=== PATIENT | male | born 1970 | race Caucasian/White ===

== ENCOUNTER 2017-08-07 10:35 | Emergency (ER) | payer OTHER ==
[~2017-08-07] VITALS: Ht 172.7 cm; Wt 68.0 kg
[2017-08-07] MEDS ORDERED: SOD CHLORIDE 0.9% 1,000 ML IV STA (10:40)
[2017-08-07] MEDS ORDERED: ALBUTEROL 0.5% (NEB) 2.5 MG/0.5 ML AMP INH STA (10:42)
[2017-08-07] MEDS ORDERED: IPRATROPIUM (NEB) 0.5 MG/2.5 ML AMP INH STA (10:42)
[2017-08-07 11:01] VITALS: Ht 172.7 cm; Wt 68.0 kg
[2017-08-07 11:02] LABS: AADO2 Arterial 283.8 mmHg (7.0-24.0); Allen Test ACCEPTAB; Arterial Base Excess -0.3 mmol/L (-3.0-3); Arterial COHb 0.3 % (0.0-3.0); Arterial Fraction of Oxyhgb 83.3 % (93.0-99.0); Arterial HCO3 24.5 mmol/L (22.0-26.0); Arterial MetHb 0.1 % (0.0-1.5); Arterial Total Hemglobin 14.2 g/dl (12.0-18.0); MODE NEBULIZER
[2017-08-07 11:07] LABS: BASOPHILS % 0.3 % (0.0-2.0); EOSINOPHILS # 0.3 10^3/ul (0.0-0.5); EOSINOPHILS % 4.7 % (0.0-7.0); HEMATOCRIT 37.5 % (42.0-52.0); HEMOGLOBIN 13.2 g/dl (14.0-18.0); LYMPHOCYTES % 14.4 % (15.0-51.0); MEAN CORPUSCULAR HEMOGLOBIN 30.8 pg (29.0-33.0); MEAN CORPUSCULAR HGB CONC 35.2 g/dl (32.0-37.0); MEAN CORPUSCULAR VOLUME 87.6 fl (82.0-101.0); MEAN PLATELET VOLUME 9.2 fl (7.4-10.4); MONOCYTE # 0.7 10^3/ul (0.3-0.9); MONOCYTES % 9.6 % (0.0-11.0); NEUTROPHIL # 5.1 10^3/ul (1.6-7.5); NEUTROPHILS % 70.6 % (39.0-77.0); PLATELET COUNT 273 10^3/UL (140-415); RED BLOOD COUNT 4.28 10^6/ul (4.70-6.10); RED CELL DISTRIBUTION WIDTH 12.6 % (11.5-14.5); WHITE BLOOD COUNT 7.2 10^3/ul (4.8-10.8)
[2017-08-07] MEDS ORDERED: LORA1TAB PO (11:08)
[2017-08-07] MEDS ORDERED: CARB200T70 PO (11:09)
[2017-08-07] MEDS ORDERED: LEVE-5 PO (11:09)
--- NOTE | 2017-08-07 11:47 | RADRPT ---
PROCEDURE: XR Chest AP portable CLINICAL INDICATION: Stroke TECHNIQUE: An AP portable radiograph of the chest was submitted. COMPARISON: None. FINDINGS: Support Hardware: None Cardiovascular: The cardiovascular silhouette appears unremarkable. Lung Yun: The lung yun appear clear with no nodule, alveolar infiltrate, or interstitial promi nence evident. Pleural Spaces: No pneumothorax or pleural effusion is identified. Osseous Structures: There is a mild apparent levoscoliotic curve to the thoracic spine. Soft Tissues: The soft tissues appear unremarkable. IMPRESSION: Unremarkable portable chest. Physician Melissa Date Time Electronically viewed and signed by Physician Melissa on 08/07/2017 11:47 RH/
[2017-08-07 11:49] LABS: INR 1.05; PARTIAL THROMBOPLASTIN TIME 29.9 Sec (25.0-35.0); PROTIME 13.7 Sec (12.2-14.2); PT RATIO 1.1
[2017-08-07 12:35] LABS: ALANINE AMINOTRANSFERASE 41 IU/L (13-69); ALBUMIN 4.2 g/dl (3.3-4.9); ALBUMIN/GLOBULIN RATIO 1.35; ALKALINE PHOSPHATASE 94 IU/L (42-121); ANION GAP 13 (8-16); ASPARTATE AMINO TRANSFERASE 20 IU/L (15-46); BILIRUBIN,INDIRECT 0.4 mg/dl (0-1.1); BILIRUBIN,TOTAL 0.4 mg/dl (0.2-1.3); BLOOD UREA NITROGEN 7 mg/dl (7-20); CALCIUM 9.1 mg/dl (8.4-10.2); CARBON DIOXIDE 26 mmol/L (21-31); CHLORIDE 95 mmol/L (97-110); CREATINE KINASE 29 IU/L (23-200); CREATININE 0.55 mg/dl (0.61-1.24); GLUCOSE 136 mg/dl (70-220); POTASSIUM 4.2 mmol/L (3.5-5.1); SODIUM 130 mmol/L (135-144); TOTAL PROTEIN 7.3 g/dl (6.1-8.1)
[2017-08-07 12:35] LABS: ADD UMIC NO; UR ASCORBIC ACID NEGATIVE (NEGATIVE); UR BILIRUBIN (Dip) NEGATIVE (NEGATIVE); UR BLOOD (Dip) NEGATIVE (NEGATIVE); UR CLARITY CLEAR (CLEAR); UR COLOR YELLOW (YELLOW); UR GLUCOSE (Dip) NEGATIVE (NEGATIVE); UR KETONES (Dip) NEGATIVE (NEGATIVE); UR LEUKOCYTE ESTERASE (Dip) NEGATIVE Leu/ul (NEGATIVE); UR NITRITE (Dip) NEGATIVE (NEGATIVE); UR SPECIFIC GRAVITY (Dip) 1.017 (1.003-1.030); UR TOTAL PROTEIN (Dip) NEGATIVE (NEGATIVE); UR UROBILINOGEN (Dip) NEGATIVE (NEGATIVE)
[2017-08-07 12:49] LABS: CK-MB 0.81 ng/ml (0.0-2.4); TROPONIN-I < 0.012 ng/ml (0.00-0.12)
[2017-08-07 13:05] LABS: BARBITURATES NEGATIVE (NEGATIVE); BENZODIAZEPINES NEGATIVE (NEGATIVE); CANNABINOIDS NEGATIVE (NEGATIVE); COCAINE NEGATIVE (NEGATIVE); OPIATES NEGATIVE (NEGATIVE)
--- NOTE | 2017-08-07 13:35 | ERA ---
ER Documentation Chief Complaint Date/Time DATE: 08/07/17 TIME: 13:22 Chief Complaint R SIDED WEAKNESS SEEN NORMAL AT 2200 LAST NIGHT HPI This is a 46-year-old male bedbound and is stiff facility due to a chronic subdural hematoma and a brain tumor with craniotomy. EMS was called to the scene as they stated the patient appeared to be more confused. The patient's last known normal time was at 10 PM, 14 hours prior to arrival. Nursing staff stated that normally the patient is able to move his upper and lower extremities but they noticed that the patient had no movement of his right upper or right lower extremity. The patient's blood glucose was normal. The patient has chronic hypoxia but is not on supplemental oxygen. The patient is not currently on antibiotics. The patient is unable to provide any history she is normally aphasic with a chronic left-sided facial droop ROS All systems reviewed and are negative except as per history of present illness. Medications Home Meds Reported Medications Levetiracetam* (Keppra*) 500 Mg Tablet, 500 MG PO BID, TAB 08/07/17 Carbamazepine* (Tegretol Xr*) 200 Mg Tab.sr.12h, 200 MG PO TID, TAB.SA 08/07/17 Lorazepam* (Lorazepam*) 1 Mg Tablet, 1 MG PO BID Y for ANXIETY, #30 TAB 08/07/17 Allergies Allergies: Coded Allergies: No Known Allergy (Unverified , 08/07/17) Physical Exam Vitals Vital Signs Date Time Temp Pulse Resp B/P Pulse Ox O2 Delivery O2 Flow Rate FiO2 08/07/17 11:01 98.5 94 19 105/71 83 08/07/17 11:01 Non Rebreather 15 08/07/17 10:55 8.0 08/07/17 10:55 93 19 86 Simple Mask 8.0 Physical Exam Constitutional:Well-developed. Cachectic male in mild respiratory distress HEENT:Normocephalic. Atraumatic.Pupils were equal round reactive to light. Moist mucous membranes.No tonsillar exudates. Neck: No nuchal rigidity. No lymphadenopathy. No posterior cervical spine tenderness or step-offs. Respiratory: Not using accessory muscles of respiration. Wheezing bilaterally. Shallow respirations. Cardiovascular: Regular rate regular rhythm.No murmurs. No rubs were appreciated.S1, S2 normal. Distal pulses are palpable 2+ bilaterally. GI: Abdomen was soft. Nontender. Non Distended. No pulsatile abdominal masses or bruits. No rebound. No guarding. Bowel sounds were present and normal. Muscle skeletal: Patient has no movement of the upper or lower extremities bilaterally. Muscle atrophy Skin: No petechia, no purpura. No lesions on the palms or the soles of the feet. No maculopapular rash. NEURO: Is alert and awake. Patient will track past midline bilaterally but holds head to the left. Does not follow verbal command. A phasic at baseline. Gait not observed as patient is not ambulatory Result Diagram: 08/07/17 1040 08/07/17 1040 Results 24 hrs Laboratory Tests Test 08/07/17 10:40 08/07/17 10:42 08/07/17 12:15 White Blood Count 7.210^3/ul Red Blood Count 4.2810^6/ul Hemoglobin 13.2g/dl Hematocrit 37.5% Mean Corpuscular Volume 87.6fl Mean Corpuscular Hemoglobin 30.8pg Mean Corpuscular Hemoglobin Concent 35.2g/dl Red Cell Distribution Width 12.6% Platelet Count 30450^3/UL Mean Platelet Volume 9.2fl Neutrophils % 70.6% Lymphocytes % 14.4% Monocytes % 9.6% Eosinophils % 4.7% Basophils % 0.3% Nucleated Red Blood Cells % 0.0/100WBC Neutrophils # 5.110^3/ul Lymphocytes # 1.010^3/ul Monocytes # 0.710^3/ul Eosinophils # 0.310^3/ul Basophils # 0.010^3/ul Nucleated Red Blood Cells # 0.010^3/ul Prothrombin Time 13.7Sec Prothrombin Time Ratio 1.1 INR International Normalized Ratio 1.05 Activated Partial Thromboplast Time 29.9Sec Sodium Level 130mmol/L Potassium Level 4.2mmol/L Chloride Level 95mmol/L Carbon Dioxide Level 26mmol/L Anion Gap 13 Blood Urea Nitrogen 7mg/dl Creatinine 0.55mg/dl Glucose Level 136mg/dl Hemoglobin A1c 5.0% Lactic Acid Level 1.6mmol/L Calcium Level 9.1mg/dl Total Bilirubin 0.4mg/dl Direct Bilirubin 0.00mg/dl Indirect Bilirubin 0.4mg/dl Aspartate Amino Transf (AST/SGOT) 20IU/L Alanine Aminotransferase (ALT/SGPT) 41IU/L Alkaline Phosphatase 94IU/L Creatine Kinase 29IU/L Creatine Kinase Index 2.8 Creatinine Kinase MB (Mass) 0.81ng/ml Troponin I < 0.012ng/ml Total Protein 7.3g/dl Albumin 4.2g/dl Globulin 3.10g/dl Albumin/Globulin Ratio 1.35 Blood Gas Specimen Source Blood arterial Arterial Blood Date Drawn 08/07/2017 10:50:39 AM Arterial Blood pH (Temp corrected) 7.397 Arterial Blood pCO2 (Temp correct) 40.8mmhg Arterial Blood pO2 (Temp corrected) 48.5mmHG Arterial Blood HCO3 24.5mmol/L Arterial Blood Base Excess -0.3mmol/L Arterial Blood Oxygen Saturation 83.6mmHG Kalyan Test ACCEPTAB Arterial Blood Gas Puncture Site Right Radial Arterial Blood Carboxyhemoglobin 0.3% Arterial Blood Methemoglobin 0.1% Blood Gas A-a O2 Differential 283.8mmHg Oxyhemoglobin Percent 83.3% Total Hemoglobin 14.2g/dl Blood Gas Temperature 37.0C Blood Gas Modality NEBULIZER FiO2 53.0% Blood Gas Critical Value Read Back DR JULES Villa Blood Gas Notified Whom JLD Blood Gas Notified Time 08/07/2017 11:02:44 AM Urine Color YELLOW Urine Clarity CLEAR Urine pH 7.0 Urine Specific Evans 1.017 Urine Ketones NEGATIVEmg/dL Urine Nitrite NEGATIVEmg/dL Urine Bilirubin NEGATIVEmg/dL Urine Urobilinogen NEGATIVEmg/dL Urine Leukocyte Esterase NEGATIVELeu/ul Urine Hemoglobin NEGATIVEmg/dL Urine Glucose NEGATIVEmg/dL Urine Total Protein NEGATIVEmg/dl Urine Opiates Screen NEGATIVE Urine Barbiturates NEGATIVE Urine Amphetamines Screen NEGATIVE Urine Benzodiazepines Screen NEGATIVE Urine Cocaine Screen NEGATIVE Urine Cannabinoids NEGATIVE Current Medications Medications (Trade) Dose Ordered Sig/Dimple Route PRN Reason Start Time Stop Time Status Last Admin Dose Admin Sodium Chloride (NS) 1,000 ml @ 1,000 mls/hr Q1H STAT IV 08/07/17 10:40 08/07/17 11:39 DC 08/07/17 11:01 Albuterol (Proventil 0.5% (Neb)) 10 mg ONCE STAT INH 08/07/17 10:42 08/07/17 10:44 DC 08/07/17 10:54 Ipratropium [place] (Atrovent 0.02% (Neb)) 1 mg ONCE STAT INH 08/07/17 10:42 08/07/17 10:44 DC 08/07/17 10:54 Procedures/MDM The patient presented to the emergency department with an acute and persistent change in their mental status. The differential diagnosis is diverse however reversible causes such as hypoglycemia, opiate overdose, thiamine deficiency were immediately considered. The patient was placed on a employee benefits manager, continuous pulse oximetry and IV access was established. The patients airway was secure however hypoxic events such as anemia, shock, or severe pulmonary disease were all considered as etiologies in this patients presentation. Circulation assessed with good cap refill and did not require fluids or pressure support. Finger stick for rapid glucose determined to be normal. The patient was hypoxic satting at roughly 78-80%. An arterial blood gas and the patient's oxygen saturation was low but there is no evidence of respiratory acidosis. At this time the patient was placed on high flow supplemental oxygen and the patient's pulse oximetry had significantly improved to 100%. Cultures and urine cultures were obtained as it was concerned with abrasion pneumonia however on the chest radiograph there is no evidence of pneumonia. 12 Lead EKG tracing ordered and reviewed by myself showed: Normal sinus rhythm of 92 bpm and no arrhythmia. MN interval normal. QRS duration normal. No ST segment elevation No ST segment depression. No changes consistent with acute ischemia. Given that the patient did have new focal neurological deficits a CT scan of the patient's head was ordered. The patient was out of the window for a TPA candidate and therefore a code stroke was not called. CT scan of the head ordered and reviewed by myself and the radiologist indicated the followin. Moderate to severe enlargement of the lateral ventricles as well as the third ventricle, with subtle periventricular white matter hypodensity. Concern is raised for moderate hydrocephalus with possible aqueductal stenosis. MRI is recommended for further evaluation. 2. Postoperative changes from suboccipital craniotomy with resection cavity in the right cerebellar hemisphere as well as encephalomalacia involving the posterior cerebellar hemispheres, likely related to remote prior mass resection. 3. Thickening of the dura along the anterolateral aspect of the right posterior fossa, which may be related to postoperative changes with calcifications however chronic subdural fluid collection is not excluded. 4. No CT evidence of infarct at this time. If clinical concern for infarct, MRI is recommended for further evaluation. The patient had no evidence of urinary tract infection or electrolyte abnormalities other than mild hypo-natremia. The patient is a [place] patient and I spoke with the [place] [facility] and I did feel that the patient was stable for transfer for further evaluation into the possible worsening of his hydrocephalus that could be resolved if his new onset neurological symptoms. Critical Care: Time: 45 minutes Treatments/Evaluations: Close monitoring and treatment of unstable vital signs, cardiorespiratory, and neurologic status, while maintaining tight balance of fluid, respiratory, and cardiac interventions. Time does not include performing any of the above billable procedures. Departure Diagnosis: Primary Impression: Severe hypoxic-ischemic encephalopathy Additional Impressions: Muscle weakness on examination Hydrocephalus Condition: Serious DENISEMAYRADARIELA Aug 07, 2017 13:35
--- NOTE | 2017-08-07 13:55 | RADRPT ---
PROCEDURE: CT Head without. CLINICAL INDICATION: Stroke symptoms. TECHNIQUE: The study was performed utilizing a multi-slice, multidetector CT scanner. Direct spira l 1 mm axial sections were obtained through the head without the use of intravenous contrast materia l. 1 or more of the following dose reduction techniques were utilized: Automated exposure control, adjustment of the mA and/or kV according to patient's size, iterative reconstruction technique. Co page and sagittal reformations were obtained. The images were reviewed on a PACS workstation. RADIATION DOSE: CTDIvol: 44.9 mGyDLP: 720.2 mGy-cm COMPARISON: No prior studies are available for comparison. FINDINGS: There are postoperative changes from prior suboccipital craniectomy, with extensive encephalomalacia involving the posterior cerebellar hemispheres as well as the right lateral cerebellar hemisphere. There is a peripherally calcified region in the right cerebellar hemisphere (coronal series image 72 ), which appears to be a prior resection cavity. There are postoperative changes along the dura ante rior to the right cerebellar hemisphere, with thickening and calcification (coronal series image 80) . There are minimal calcifications along the bilateral tentorial leaflets. There is no evidence of c erebellar herniation. There is severe encephalomalacia involving the right anterior - superior front al lobe with associated prominent ex vacuo enlargement of the frontal horn of the right lateral vent ricle. There is moderate to severe prominence of the lateral ventricles, with moderate prominence of the temporal horns of the lateral ventricle. There is moderate enlargement of the third ventricle. The fourth ventricle is within normal limits in size. On sagittal image 42, concern is raised for po ssible aqueductal stenosis. There is no intracranial hemorrhage, extra-axial fluid collection, mass lesion or midline shift. Th ere is mild periventricular and subcortical white matter hypodensity, most prominent surrounding elaine tricles. The lares-white matter differentiation is preserved. The basal cisterns are patent. The m idline structures are intact. There is thinning of the right inner table of the calvarium relative to the left, likely related to chronic sequelae of patient's chronic ex vacuo enlargement of the rig ht lateral ventricle. The visualized paranasal sinuses, mastoid air cells and middle ear cavities ar e normally aerated. IMPRESSION: 1. Moderate to severe enlargement of the lateral ventricles as well as the third ventricle, with cordero btle periventricular white matter hypodensity. Concern is raised for moderate hydrocephalus with pos sible aqueductal stenosis. MRI is recommended for further evaluation. 2. Postoperative changes from suboccipital craniotomy with resection cavity in the right cerebellar hemisphere as well as encephalomalacia involving the posterior cerebellar hemispheres, likely relat ed to remote prior mass resection. 3. Thickening of the dura along the anterolateral aspect of the right posterior fossa, which may be related to postoperative changes with calcifications however chronic subdural fluid collection is n ot excluded. 4. No CT evidence of infarct at this time. If clinical concern for infarct, MRI is recommended for further evaluation. The above findings were discussed with Patient's physician Ebony Quiroz by telephone on 08/07/20 17 1:44:50 PM. RPTAT: HGAS .Altaf Lemus MD, Date Time Electronically viewed and signed by .Altaf Lemus MD, MD on 08/07/2017 13:55 .S/
[2017-08-07 14:57] VITALS: TEMP 98
[2017-08-07 16:45] VITALS: BP 123/90; PULSE 89; RESP 25
== END 2017-08-07 16:30 | disposition short-term general hospital (02) ==
LOC: E/R 10:35
DX: P91.60 Hypoxic ischemic encephalopathy [HIE], unspecified (principal); R40.2222 Coma scale, best verbal response, incomprehensible words, at arrival to emergency department; R40.2142 Coma scale, eyes open, spontaneous, at arrival to emergency department; R40.2362 Coma scale, best motor response, obeys commands, at arrival to emergency department; R07.9 Chest pain, unspecified
CPT/HCPCS: 36415; 36600; 70450; 71010; 80053; 80307; 81003; 82550; 82553; 82803; 83036; 83605; 84484; 85025; 85610; 85730; 86850; 86900; 86901; 93005; 94644; 99291; J7030